=== PATIENT | male | born 1990 | race American Indian/Alaskan Native ===

== ENCOUNTER 2017-03-27 00:16 | Emergency (ER) | payer OTHER ==
[2017-03-27 00:42] VITALS: BP 123/71
--- NOTE | 2017-03-27 01:09 | XRay Report ---
FINAL REPORT EXAM: XR FINGER(S) 2+V LT HISTORY: LEFT PINKY PAIN COMPARISON: None available. FINDINGS: Three views of the left 5th finger obtained. Mild soft tissue swelling along the 5th PIP joint. There is an oblique nondisplaced fracture of the base of the 5th proximal phalanx at the MCP joint level. Remaining bony structures are intact. IMPRESSION: Small oblique nondisplaced fracture at the radial base of the 5th proximal phalanx.
== END 2017-03-27 03:45 | disposition left against medical advice (07) ==
LOC: ED 00:16
DX: Z53.21 Procedure and treatment not carried out due to patient leaving prior to being seen by health care provider (principal)